=== PATIENT | female | born 1940 | race Caucasian/White ===

== ENCOUNTER 2019-01-25 17:59 | Inpatient (IN) ==
[2019-01-25] MEDS ORDERED: HYDROmorphone 2 MG/1 ML VIAL IV STA ×2 (18:23→21:07)
[2019-01-25] MEDS ORDERED: ONDANSETRON 4 MG/2 ML VIAL IV STA ×2 (18:23→21:07)
[2019-01-25] MEDS ORDERED: PANTOPRAZOLE 40 MG VIAL IV STA (18:23)
[2019-01-25] MEDS ORDERED: SODIUM CHLORIDE 0.9% 500 ML IV STA (18:23)
[2019-01-25 18:56] LABS: Basophils # 0.1 10*3/uL (0.0-0.2); Basophils % 0.7 % (0.0-0.8); Eosinophils % 0.2 % (0.00-10.9); Hematocrit 44.3 VOL% (35.7-47.0); Hemoglobin 14.8 GM/DL (12.0-16.0); Immature Granulocytes % 0.4 %; Immature Granulocytes Absolute 0.05 #; Lymphocytes # 1.3 10*3/uL (1.4-4.0); Lymphocytes % 11.4 % (21.3-54.2); Mean Corpuscular HGB Conc 33.4 GM/DL (32-36); Mean Corpuscular Volume 96.7 FL (87-102); Mean Platelet Volume 9.9 FL (9.6-12.0); Monocytes % 4.7 % (1.7-12.7); Neutrophils % 82.6 % (38.7-73.9); Platelet Count 285 T/CUMM (130-400); Red Blood Count 4.58 MC/CUMM (3.8-5.5); White Blood Count 11.4 T/CUMM (4-12)
[2019-01-25 19:19] LABS: Bilirubin,Total 0.7 MG/DL (0.2-1.0); Calcium 9.3 MG/DL (8.5-10.1); Total Protein 7.6 G/DL (6.4-8.3)
[2019-01-25 19:53] LABS: Apearance,Urine Slightly Hazy (Clear); Bilirubin,Urine Negative (Negative); Blood, Urine Negative (Negative); Glucose,Urine (UA) Negative (Negative); Ketones,Urine 20 mg/dL (Negative); Mucus,Urine Occasional /LPF (Occasional); Nitrite,Urine Negative (Negative); Protein,Urine Negative; RBC,Urine 2 /HPF (0-4); Squamous Epithelial Cell,Urine Occasional /HPF (0-10); Urine Color Yellow (Yellow); Urine Specific Gravity 1.019 (1.001-1.035); Urine Urobilinogen < 2.0 EU/DL (0.2-1.0); WBC,Urine 1 /HPF (0-6)
[2019-01-25] MEDS ORDERED: ACETAMINOPHEN 325 MG TABLET PO PRN (21:54)
[2019-01-25] MEDS ORDERED: ONDANSETRON 4 MG/2 ML VIAL IV PRN (21:54)
[2019-01-25] MEDS ORDERED: LACTULOSE 20 GM/30 ML UDCUP PO PRN (21:54)
[2019-01-25] MEDS: SODIUM CHLORIDE 0.9% 1,000 ML IV SCH (23:23)
[2019-01-25] MEDS: ENOXAPARIN 40 MG/0.4 ML SYRINGE SUBCUT SCH (23:23)
[2019-01-25] MEDS: DOCUSATE SODIUM 100 MG CAPSULE PO SCH (23:23)
[2019-01-26] MEDS: HYDROmorphone 2 MG/1 ML VIAL IV PRN ×2 (03:19→22:09)
[2019-01-26 06:05] LABS: Basophils # 0.1 10*3/uL (0.0-0.2); Basophils % 0.7 % (0.0-0.8); Eosinophils % 0.4 % (0.00-10.9); Hematocrit 41.8 VOL% (35.7-47.0); Hemoglobin 13.4 GM/DL (12.0-16.0); Immature Granulocytes % 0.5 %; Immature Granulocytes Absolute 0.05 #; Lymphocytes # 2.8 10*3/uL (1.4-4.0); Lymphocytes % 30.8 % (21.3-54.2); Mean Corpuscular HGB Conc 32.1 GM/DL (32-36); Mean Platelet Volume 10.5 FL (9.6-12.0); Monocytes % 9.9 % (1.7-12.7); Neutrophils % 57.7 % (38.7-73.9); Platelet Count 282 T/CUMM (130-400); Red Blood Count 4.18 MC/CUMM (3.8-5.5); Red Cell Distribution Width 13.2 % (9.3-17.3); White Blood Count 9.2 T/CUMM (4-12)
[2019-01-26] MEDS: SODIUM CHLORIDE 0.9% 1,000 ML IV SCH ×2 (06:19→16:35)
[2019-01-26 06:34] LABS: Albumin 3.7 G/DL (3.4-5.0); Calcium 8.8 MG/DL (8.5-10.1); Osmolality,Calculated 276.7 MOS/KG (273-304); Total Protein 6.9 G/DL (6.4-8.3)
[2019-01-26] MEDS ORDERED: PANTOPRAZOLE 40 MG VIAL IV SCH (09:00)
[2019-01-26] MEDS: DOCUSATE SODIUM 100 MG CAPSULE PO SCH ×2 (10:57→20:52)
[2019-01-26] MEDS ORDERED: traZODone 50 MG TABLET PO SCH (21:30)
[2019-01-26] MEDS: ENOXAPARIN 40 MG/0.4 ML SYRINGE SUBCUT SCH (22:09)
[2019-01-27] MEDS: SODIUM CHLORIDE 0.9% 1,000 ML IV SCH (00:36)
[2019-01-27] MEDS: HYDROmorphone 2 MG/1 ML VIAL IV PRN (05:41)
[2019-01-27 06:24] VITALS: BP 173/99
== END 2019-01-27 07:50 | disposition home or self-care (01) | DRG 390 ==
LOC: N.ED 17:59 → N.EDINP 20:57 → N.3E 21:15
PROVIDERS: ADMIT Family Medicine; ATTEND Family Medicine

== ENCOUNTER 2019-06-02 01:56 | Inpatient (IN) ==
[2019-06-02 03:35] LABS: Basophils # 0.1 10*3/uL (0.0-0.2); Basophils % 0.4 % (0.0-0.8); Eosinophils % 0.1 % (0.00-10.9); Hematocrit 45.7 VOL% (35.7-47.0); Hemoglobin 15.5 GM/DL (12.0-16.0); Immature Granulocytes % 0.4 %; Immature Granulocytes Absolute 0.05 #; Lymphocytes % 7.3 % (21.3-54.2); Mean Corpuscular HGB Conc 33.9 GM/DL (32-36); Mean Corpuscular Volume 96.8 FL (87-102); Neutrophils % 87.8 % (38.7-73.9); Platelet Count 278 T/CUMM (130-400); Red Blood Count 4.72 MC/CUMM (3.8-5.5); Red Cell Distribution Width 12.6 % (9.3-17.3); White Blood Count 13.6 T/CUMM (4-12)
[2019-06-02 03:55] LABS: Albumin 2.7 G/DL (3.4-5.0); Bilirubin,Total 0.5 MG/DL (0.2-1.0); Calcium 6.5 MG/DL (8.5-10.1); Osmolality,Calculated 288.8 MOS/KG (273-304); Total Protein 5.2 G/DL (6.4-8.3)
[2019-06-02 04:19] LABS: Amorphous Crystals,Urine Few /HPF (Few); Apearance,Urine CLOUDY (Clear); Bacteria,Urine Occasional /HPF (Few); Bilirubin,Urine Negative (Negative); Blood, Urine Negative (Negative); Glucose,Urine (UA) Negative (Negative); Ketones,Urine 5 mg/dL (Negative); Mucus,Urine Occasional /LPF (Occasional); Nitrite,Urine Negative (Negative); Protein,Urine Negative; RBC,Urine 1 /HPF (0-4); Squamous Epithelial Cell,Urine Occasional /HPF (0-10); Urine Color Yellow (Yellow); Urine Specific Gravity 1.017 (1.001-1.035); Urine Urobilinogen < 2.0 EU/DL (0.2-1.0)
[2019-06-02] MEDS ORDERED: LACTATED RINGERS 1,000 ML IV ONE (06:44)
[2019-06-02] MEDS ORDERED: ONDANSETRON 4 MG/2 ML VIAL IV STA (06:45)
[2019-06-02] MEDS ORDERED: ACETAMINOPHEN 325 MG TABLET PO PRN (07:04)
[2019-06-02] MEDS ORDERED: ONDANSETRON 4 MG/2 ML VIAL IV PRN (07:04)
[2019-06-02] MEDS ORDERED: HYDROmorphone 2 MG/1 ML VIAL IV PRN (07:11)
[2019-06-02] MEDS ORDERED: DEXTROSE 5% NACL 0.45% 1,000 ML IV SCH (07:30)
[2019-06-02] MEDS: PANTOPRAZOLE 40 MG TABLET PO SCH (09:09)
[2019-06-02] MEDS: ENOXAPARIN 40 MG/0.4 ML SYRINGE SUBCUT SCH (09:09)
[2019-06-02] MEDS: cycloSPORINE OPH EMUL 1 VIAL BOTH EYES SCH (09:09)
[2019-06-02] MEDS: LISINOPRIL 20 MG TABLET PO SCH (09:09)
[2019-06-02] MEDS: LEVOTHYROXINE 125 MCG TABLET PO SCH (09:09)
[2019-06-02] MEDS: DOCUSATE SODIUM 100 MG CAPSULE PO SCH ×2 (09:10→21:09)
[2019-06-02] MEDS: MAGNESIUM GLUCONATE 500 MG TABLET PO SCH (09:10)
[2019-06-02] MEDS: ASCORBIC ACID 500 MG TABLET PO SCH (09:10)
[2019-06-02] MEDS ORDERED: TEMAZEPAM 7.5 MG CAPSULE PO PRN (15:52)
[2019-06-02] MEDS ORDERED: CITALOPRAM 20 MG TABLET PO SCH (19:00)
[2019-06-02] MEDS ORDERED: traZODone 50 MG TABLET PO SCH (21:00)
[2019-06-03 06:06] LABS: Basophils % 0.4 % (0.0-0.8); Eosinophils # 0.1 10*3/uL (0.0-0.87); Eosinophils % 1.7 % (0.00-10.9); Hematocrit 37.2 VOL% (35.7-47.0); Hemoglobin 12.5 GM/DL (12.0-16.0); Immature Granulocytes % 0.2 %; Immature Granulocytes Absolute 0.02 #; Lymphocytes # 2.3 10*3/uL (1.4-4.0); Lymphocytes % 28.5 % (21.3-54.2); Mean Corpuscular HGB Conc 33.6 GM/DL (32-36); Mean Corpuscular Volume 98.4 FL (87-102); Monocytes % 8.3 % (1.7-12.7); Neutrophils % 60.9 % (38.7-73.9); Platelet Count 240 T/CUMM (130-400); Red Blood Count 3.78 MC/CUMM (3.8-5.5); Red Cell Distribution Width 12.9 % (9.3-17.3); White Blood Count 8.2 T/CUMM (4-12)
[2019-06-03] MEDS: LEVOTHYROXINE 125 MCG TABLET PO SCH (06:16)
[2019-06-03 06:29] LABS: Calcium 7.8 MG/DL (8.5-10.1); Osmolality,Calculated 280.3 MOS/KG (273-304)
[2019-06-03 08:40] VITALS: BP 149/74
[2019-06-03] MEDS: MAGNESIUM GLUCONATE 500 MG TABLET PO SCH (09:40)
[2019-06-03] MEDS: ENOXAPARIN 40 MG/0.4 ML SYRINGE SUBCUT SCH (09:40)
[2019-06-03] MEDS: LISINOPRIL 20 MG TABLET PO SCH (09:40)
[2019-06-03] MEDS: ASCORBIC ACID 500 MG TABLET PO SCH (09:40)
[2019-06-03] MEDS: cycloSPORINE OPH EMUL 1 VIAL BOTH EYES SCH (09:40)
[2019-06-03] MEDS: DOCUSATE SODIUM 100 MG CAPSULE PO SCH (09:40)
[2019-06-03] MEDS: PANTOPRAZOLE 40 MG TABLET PO SCH (09:40)
[2019-06-05] MEDS ORDERED: ESTRADIOL 0.1 MG PATCH (1X WK) TRANSDERM SCH (09:00)
== END 2019-06-03 10:26 | disposition home or self-care (01) | DRG 390 ==
LOC: EDUNIT# → EDBD → N.ED 01:56 → N.EDINP 07:04 → N.3E 08:02
PROVIDERS: ADMIT Family Medicine; ATTEND Family Medicine